=== PATIENT | male | born 1995 | race American Indian/Alaskan Native ===

== ENCOUNTER 2021-08-18 01:02 | Emergency (ER) | payer OTHER ==
[2021-08-18] MEDS ORDERED: ONDANSETRON 4 MG ODT TAB PO STA (02:47)
--- NOTE | 2021-08-18 02:59 | Emergency Department Report ---
ED General Adult HPI - General Chief complaint: Allergic Reaction Stated complaint: ALLERGIC REACTION Time Seen by Provider: 08/18/21 01:46 Source: patient Mode of arrival: Ambulatory Limitations: No Limitations - History of Present Illness Initial comments: 25-year-old F [place] male presents emerge department complaining of having sensation of lightheadedness, fatigue, weakness and occasional palpitations which started after he had ingested a substance with a friend earlier today. He has suspicion to believe he come in contact with methamphetamine reports no chest pain, no fever, chills, sweats. Hemoptysis or hematemesis but has had some issues with nausea and vomiting Secondarily also request to be checked for STDs while in emergency department stay since he he is here in the emergency department Miles will kill 2 birds with 1 stone -: Gradual Radiation: non-radiation Quality: dull Consistency: constant Improves with: none Worsens with: none Associated Symptoms: denies other symptoms. denies: confusion, cough, loss of appetite, malaise, nausea/vomiting, seizure, syncope, weakness Treatments Prior to Arrival: none - Related Data Previous Rx's Medication Instructions Recorded Last Taken Type Ondansetron [Zofran ODT TAB] 8 mg PO Q12HR #14 tab.rapdis 08/18/21 Unknown Rx Allergies Allergy/AdvReac Type Severity Reaction Status Date / Time No Known Allergies Allergy Verified 08/18/21 01:12 ED Review of Systems ROS: Stated complaint: ALLERGIC REACTION Other details as noted in HPI Comment: All other systems reviewed and negative ED Past Medical Hx - Past Medical History Previous Medical History?: No - Surgical History Past Surgical History?: No - Medications Home Medications: Home Medications Medication Instructions Recorded Confirmed Last Taken Type Ondansetron [Zofran ODT TAB] 8 mg PO Q12HR #14 tab.rapdis 08/18/21 Unknown Rx ED Physical Exam - General Limitations: No Limitations General appearance: alert, in no apparent distress - Head Head exam: Present: atraumatic, normocephalic - Eye Eye exam: Present: normal appearance, PERRL, EOMI Pupils: Present: normal accommodation - ENT ENT exam: Present: normal exam, mucous membranes moist, TM's normal bilaterally - Neck Neck exam: Present: normal inspection, full ROM - Respiratory Respiratory exam: Present: normal lung sounds bilaterally. Absent: respiratory distress, wheezes, rhonchi, decreased breath sounds - Cardiovascular Cardiovascular Exam: Present: regular rate, normal rhythm. Absent: systolic murmur, diastolic murmur, rubs, gallop - GI/Abdominal GI/Abdominal exam: Present: soft, normal bowel sounds - Rectal Rectal exam: Present: deferred - Extremities Exam Extremities exam: Present: normal inspection, full ROM - Back Exam Back exam: Present: normal inspection. Absent: CVA tenderness (R), CVA tenderness (L) - Neurological Exam Neurological exam: Present: alert, oriented X3, CN II-XII intact, normal gait - Psychiatric Psychiatric exam: Present: normal affect, normal mood - Skin Skin exam: Present: warm, dry, intact, normal color. Absent: rash ED Course Vital Signs 08/18/21 01:05 Pulse Rate 64 Respiratory 19 Rate Blood Pressure 150/103 [Right] O2 Sat by Pulse 100 Oximetry ED Medical Decision Making - Medical Decision Making 5-year-old male seen emerge department for what was initially suspected allergic reaction. Patient not having any signs of any angioedema, no hives, no wheezing, no shortness of breath or any other symptoms to suggest anaphylaxis. He did come in contact with an illicit drug and is having secondary symptoms related to the illicit drug utilization. No evidence of any urgent or emergent medical condition has been found today discussed plan of care with the patient she did express a full understanding and feels comfortable with being discharged home with instructions to follow-up with primary care Critical care attestation.: If time is entered above; I have spent that time in minutes in the direct care of this critically ill patient, excluding procedure time. ED Disposition Clinical Impression: Drug reaction Disposition: 01 HOME / SELF CARE / HOMELESS Is pt being admited?: No Does the pt Need Aspirin: No Condition: Stable Instructions: Accidental Drug Poisoning, Adult Prescriptions: Ondansetron [Zofran ODT TAB] 8 mg PO Q12HR #14 tab.rapdis Referrals: [facility] [Provider Group] - 3-5 Days PRIMARY CARE, [Primary Care Provider] - 3-5 Days
[2021-08-18 05:06] VITALS: BP 123/69
== END 2021-08-18 04:42 | disposition home or self-care (01) ==
LOC: ED 01:02
DX: R42 Dizziness and giddiness (principal); R53.83 Other fatigue; R00.2 Palpitations; T43.625A Adverse effect of amphetamines, initial encounter; Y92.89 Other specified places as the place of occurrence of the external cause
CPT/HCPCS: 99282; J3490; Q0162